=== PATIENT | male | born 1960 | race Hispanic/Latino ===

== ENCOUNTER 2018-06-17 14:12 | Inpatient (IN) | payer MEDICARE, OTHER ==
--- NOTE | 2018-06-17 15:25 | C.PDOC ---
History Of Present Illness 57 year old male with Hx of COPD presents to the ER as a prescreen for detox. Patient states he has been using ETOH and percocet, last use was last night. Denies physical complaints at this time. Time Seen by Provider: 06/17/18 15:14 Chief Complaint (Nursing): Substance Abuse History Per: Patient History/Exam Limitations: no limitations Onset/Duration Of Symptoms: Days Current Symptoms Are (Timing): Still Present Suicide/Self Injury Attempted (Context): None Associated Symptoms: denies: Suicidal Thoughts, Suicidal Plan Involuntary Hold By: None Recent travel outside of the [place]: No Past Medical History Reviewed: Historical Data, Nursing Documentation, Vital Signs Vital Signs: Last Vital Signs Temp 97.7 F 06/17/18 14:37 Pulse 86 06/17/18 14:37 Resp 18 06/17/18 14:37 BP 150/75 06/17/18 14:37 Pulse Ox 98 06/17/18 17:57 - Medical History PMH: Arthritis, Asthma, Back Problems, Bronchitis, COPD, Depression Denies: Diabetes, Hepatitis, HIV, HTN, Chronic Kidney Disease, Seizures, Sexually Transmitted Disease - [facility] DETOXIFICATION SERVICES FOR SUBSTANCE ABUSE TREATMENT (09/03/16) INDIVIDUAL PSYCHOTHERAPY, SUPPORTIVE (08/05/16) Family History: States: Unknown Family Hx, Hypertension - Social History Hx Tobacco Use: Yes Hx Alcohol Use: Yes Hx Substance Use: Yes - Immunization History Hx Tetanus Toxoid Vaccination: No Hx Influenza Vaccination: No Hx Pneumococcal Vaccination: No Review Of Systems Constitutional: Negative for: Fever, Chills Cardiovascular: Negative for: Chest Pain, Palpitations Respiratory: Negative for: Cough, Shortness of Breath Gastrointestinal: Negative for: Nausea, Vomiting Neurological: Negative for: Weakness, Numbness Physical Exam - Physical Exam Appears: Non-toxic Skin: Normal Color, Warm, Dry Head: Atraumatic, Normacephalic Eye(s): bilateral: Normal Inspection Oral Mucosa: Moist Neck: Normal, Supple Chest: Symmetrical, No Tenderness Cardiovascular: Rhythm Regular Respiratory: Normal Breath Sounds, No Rales, No Rhonchi, No Wheezing Gastrointestinal/Abdominal: Soft, No Tenderness Neurological/Psych: Oriented x3, Normal Speech ED Course And Treatment - Laboratory Results Result Diagrams: 06/17/18 15:47 06/17/18 15:47 Lab Interpretation: Normal O2 Sat by Pulse Oximetry: 98 (Room air) Pulse Ox Interpretation: Normal Progress Note: Blood work and urinalysis ordered. 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 - Scribe Statement The provider has reviewed the documentation as recorded by the Scribe Darnell Campbell All medical record entries made by the Scribe were at my direction and personally dictated by me. I have reviewed the chart and agree that the record accurately reflects my personal performance of the history, physical exam, medical decision making, and the department course for this patient. I have also personally directed, reviewed, and agree with the discharge instructions and disposition. Decision To Admit - Pt Status Changed To: Hospital Disposition Of: Inpatient - Admit Certification Admit to Inpatient:: After my assessment, the patient will require hospitalization for at least two midnights. This is because of the severity of symptoms shown, intensity of services needed, and/or the medical risk in this patient being treated as an outpatient. - InPatient: Physician Admission Certification: I certify that this patient requires 2 or more midnights of care for the following reason:: alcohol abuse. Opioid abuse. Anxiety - . Bed Request Type: Detox Admitting Physician: Filiberto Luna Patient Diagnosis: Drug abuse, Alcohol abuse, Anxiety
[2018-06-17 15:53] LABS: BASO % 0.3 % (0.0-2.0); EOS # 0.3 K/uL (0.0-0.7); EOS % 2.8 % (0.0-4.0); HEMOGLOBIN 15.4 g/dL (12.0-18.0); LYMPH # 3.4 K/uL (1.0-4.3); LYMPH % 35.2 % (20.0-40.0); MEAN CELL VOLUME 92.8 fL (80.0-94.0); MEAN CORPUSCULAR HEMOGLOBIN 31.8 pg (27.0-31.0); MEAN CORPUSCULAR HGB CONC 34.2 g/dL (33.0-37.0); MEAN PLATELET VOLUME 7.9 fL (7.2-11.7); MONO # 0.9 K/uL (0.0-0.8); MONO % 9.7 % (0.0-10.0); NEUT # 5.1 K/uL (1.8-7.0); NRBC % 0.1 % (0.0-2.0); RBC 4.83 Mil/uL (4.40-5.90); RED CELL DISTRIBUTION WIDTH 14.2 % (11.5-14.5); WHITE BLOOD COUNT 9.7 K/uL (4.8-10.8)
[2018-06-17 16:06] LABS: ALB/GLOB RATIO 2.1 (1.0-2.1); ALBUMIN 4.1 g/dL (3.5-5.0); ALT/SGPT 39 U/L (21-72); AST/SGOT 16 U/L (17-59); BLOOD UREA NITROGEN 27 mg/dL (9-20); CALCIUM 8.7 mg/dl (8.6-10.4); GFR NON-AFRICAN AMERICAN > 60
[2018-06-17 16:07] LABS: GRANULAR CAST 5 /lpf (0-1); SQUAMOUS EPITHIAL 3 /hpf (0-5); URINE BILIRUBIN NEGATIVE (NEGATIVE); URINE BLOOD NEGATIVE (NEGATIVE); URINE CLARITY Hazy (Clear); URINE COLOR Yellow (YELLOW); URINE GLUCOSE (UA) NORMAL (Normal); URINE LEUKOCYTE ESTERASE NEG Leu/uL (Negative); URINE PROTEIN NEGATIVE (NEGATIVE)
[2018-06-17 16:12] LABS: BARBITURATES, UR NEGATIVE (NEGATIVE); PHENCYCLIDINE, UR NEGATIVE (NEGATIVE)
[2018-06-17 16:22] LABS: BENZODIAZEPINES, UR POSITIVE (NEGATIVE); OPIATES, UR POSITIVE (NEGATIVE)
--- NOTE | 2018-06-17 18:25 | PCM.BM ---
<JanineTawanna - Last Filed: 06/17/18 18:23> Treatment Plan Problems - Problems identified on initial assessmt Potential for alcohol withdrawal Date Initiated: 06/17/18 Time Initiated: 18:24 Assessment reference: NA Status: Active Potential for opiate withdrawal Date Initiated: 06/17/18 Time Initiated: 18:24 Assessment reference: NA Status: Active Treatment assets and liabiliti Patient Assests: ADL independent, negotiates basic needs, cognitively intact Patient Liabilities: substance abuse - Milieu Protocol Maintain good personal hygiene: daily Encourage regular showers, daily Remind patient to perform daily oral care, daily Assist patient to perform ADL's Conduct patient checks and document Observation sheet: Q15 minutes Maintain personal safety: every shift Educate patient to report safety concerns to staff, every shift Monitor environment for contraband/sharps Medication safety: Monitor for expected outcome, potential side effects: every shift, Assess barriers to learning: every shift, Assess readiness for medication education: every shift <Cornelia Stroud - Last Filed: 06/19/18 13:59> - Diagnosis (1) Opioid use disorder, severe, dependence Status: Acute Interventions: 06/18/18 13:59 * Assess 7x/week regarding severity of withdrawal * Educate regarding risks, benefits, side effects and alternatives of medications * Use Motivational Interviewing for abstinence * Use CBT for relapse prevention * Medication management for withdrawal symptoms * Encourage medication assisted treatment * (2) Alcohol use disorder, severe, dependence Status: Acute Interventions: 06/18/18 13:59 * Assess 7x/week regarding severity of withdrawal * Educate regarding risks, benefits, side effects and alternatives of medications * Use Motivational Interviewing for abstinence * Use CBT for relapse prevention * Medication management for withdrawal symptoms * Encourage medication assisted treatment *
[2018-06-17] MEDS: Albuterol HFA 90 mcg/actuation (8 g) INH PRN (19:11)
[2018-06-17] MEDS ORDERED: Aluminum Hydroxide/Magnesium Hydroxide Susp (30 mL) PO PRN (22:40)
[2018-06-18] MEDS: Albuterol HFA 90 mcg/actuation (8 g) INH PRN ×3 (07:52→21:40)
[2018-06-18] MEDS ORDERED: Buprenorphine Hydrochloride 2 mg SL ONE ×2 (08:45→10:00)
[2018-06-18] MEDS: Multiple Vitamins Tab PO SCH (09:23)
--- NOTE | 2018-06-19 00:57 | PCM.PSYCH ---
Initial Psychiatric Evaluation - Initial Psychiatric Evaluation Type of Admission: Voluntary Legal Status: Capacity Chief Complaint (in patient's own words): "I need to stop this" History of Present Illness and Precipitating Events: The pt is seen, chart reviewed, case discussed He is a 57 y/o WM, single with no child, lives alone, on disability due to COPD He uses 15 x 10 mg pills for the last 3 years. He has been to 5-6 detoxes Drinks 10+ alcohol and sometimes 2 pints of liquor Smokes 1/2 ppd cig Denies others He had significant wdw sxs and has hx of DTs Medical; COPD, spinal stenosis Psych hx: Major depression, not inocente. Family psych hx: Denied Current Medications: Active Medications Generic Name Dose Route Start Last Admin Trade Name Freq PRN Reason Stop Dose Admin Al Hydrox/Mg Hydrox/Simethicone 30 ml 06/17/18 22:40 Maalox 30 Ml PO TID PRN Indigestion / Heartburn Albuterol 1 puff 06/17/18 18:41 06/18/18 21:40 Ventolin Hfa 90 Mcg/Actuation (8 G) INH 1 inhaler RQ6 PRN Administration Shortness of Breath Chlordiazepoxide 25 mg 06/18/18 00:00 06/18/18 17:20 Librium PO 06/21/18 23:59 25 mg TID RADHA Administration Taper Chlordiazepoxide 25 mg 06/17/18 18:44 06/18/18 21:08 Librium PO 25 mg Q4H PRN Administration Alcohol Withdrawal Clonidine HCl 0.1 mg 06/17/18 22:39 06/18/18 21:08 Catapres PO 0.1 mg Q4H PRN Administration Symptoms of alcohol withdrawl Folic Acid 1 mg 06/18/18 10:00 06/18/18 09:23 Folic Acid PO 1 mg DAILY RADHA Administration Gabapentin 300 mg 06/18/18 10:00 06/18/18 17:20 Neurontin PO 300 mg TID RADHA Administration Hydroxyzine HCl 25 mg 06/17/18 18:43 06/18/18 21:08 Atarax PO 25 mg Q6 PRN Administration Anxiety Ibuprofen 600 mg 06/17/18 18:45 06/18/18 14:07 Motrin Tab PO 600 mg Q8 PRN Administration Pain, moderate (4-7) Loperamide HCl 2 mg 06/17/18 22:40 Imodium PO Q8 PRN Diarrhea Multivitamins 1 tab 06/18/18 10:00 06/18/18 09:23 Hexavitamin PO 1 tab DAILY RADHA Administration Ondansetron HCl 4 mg 06/17/18 22:40 Zofran Tab PO Q8 PRN Nausea/Vomiting Thiamine HCl 100 mg 06/18/18 10:00 06/18/18 09:23 Vitamin B1 Tab PO 100 mg DAILY RADHA Administration Trazodone HCl 50 mg 06/17/18 18:44 06/18/18 21:08 Desyrel PO 50 mg HS PRN Administration Insomnia Past Psychiatric History - Past Psychiatric History Previous Treatment History: Intensive Outpatient Pertinent Medical Hx (Current Medical&Sleep Prob, Allergies): Allergies Allergy/AdvReac Type Severity Reaction Status Date / Time No Known Allergies Allergy Verified 01/22/18 21:46 oxyCODONE/Acetaminophen [Percocet 5/325 mg Tab] 1 ea PO Q6 #20 tab 08/08/17 Albuterol HFA [Ventolin HFA 90 mcg/actuation (8 g)] 1 - 2 puff IH Q4H PRN #1 bottle 12/31/17 Fluticasone/Vilanterol [Breo Ellipta 100-25 Mcg INH] 1 each IH DAILY 06/17/18 Umeclidinium [place] [Incruse Ellipta] 62.5 mcg IH DAILY 06/17/18 Review of Systems - Neurological Neurological: Tremor - Psychiatric Psychiatric: Abnormal Sleep Pattern, Anxiety, Depression, Difficulty Concentrating. absent: Hallucinations, Homicidal Ideation, Paranoia, Suicidal Ideation Mental Status Examination - Personal Presentation Personal Presentation: Looks stated age - Affect Affect: Constricted - Motor Activity Motor Activity: Calm - Reliability in Providing Information Reliability in Providing Information: Good - Speech Speech: Organized - Mood Mood: Depressed, Anxious - Formal Thought Process Formal Thought Process: No Impairment - Cognitive Functions Orientation: Person, Place, Situation, Time Sensorium: Alert Attention/Concentration: Attentive Estimate of Intelligence: Average Judgement: Intact, as evidence by: Insight regarding need for hospitalization Memory: Recent intact, as evidence by: Ability to recall events of the day, Remote intact, as evidenced by: Abilit to recall sig. life events - Risk Risk: Seizure, Withdrawal, Diminished functioning - Strength & Assets Inventory Strength & Assets Inventory: Cooperative DSM 5 DX - DSM 5 DSM 5 Diagnosis: Opioid withdrawal Alcohol withdrawal Opioid use d/o -severe Alcohol use d/o - severe Tobacco use d/o - severe Major depression, single moderate - Recommended/Plan of Treatment Treatment Recommendations and Plan of Treatment: Subutex and alcohol detox As needed medications Gabapentin for augmentation if needed All risks, benefits and alternatives of medications, including no medications, discussed and the patient understood and agreed. Attend groups and activities Supportive therapy and psychoeducation [place] for abstinence CBT for relapse prevention Encourage MAT Refer to rehab or IOP Attend self-help groups as well [place] for smoking cessation and patch if needed 34 min Projected ELOS: 4 days
[2018-06-19] MEDS: Albuterol HFA 90 mcg/actuation (8 g) INH PRN ×2 (07:39→13:20)
[2018-06-19] MEDS: Buprenorphine Hydrochloride 2 mg SL SCH (09:20)
[2018-06-19] MEDS: Multiple Vitamins Tab PO SCH (09:20)
--- NOTE | 2018-06-19 14:01 | PCM.PYCHPN ---
Psychiatric Progress Note - Psychiatric Progress Note Patient seen today, length of contact: 16 min Patient Chief Complaint: "I need more librium" Problems Identified/Issues Discussed: The pt is seen, chart reviewed, case discussed with staff. The pt is compliant with medications and reports no side-effects. Symptoms are improving but needs more time to stabilize. Librium is increased to 50 mg per dose due to ongoing wdw sxs Pt attends groups and activities. Support given, psycho-education provided. After care discussed. Medication Change: Yes (detox changes daily) Medical Record Reviewed: Yes Mental Status Examination - Cognitive Function Orientation: Person, Place, Situation, Time Memory: Intact Attention: WNL Concentration: Poor Association: WNL Fund of Knowledge: WNL - Mood Mood: Depressed, Anxious - Affect Affect: Constricted - Speech Speech: Appropriate - Formal Thought Process Formal Thought Process: No Impairment - Suicidal Ideation Suicidal Ideation: No - Homicidal Ideation Homicidal Ideation: No Goal/Treatment Plan - Goal/Treatment Plan Need for Continued Stay: Discharge may exacerbated symptoms, Severe functional impairment Progress Toward Problem(s) and Goals/Treatment Plan: Subutex and alcohol detox As needed medications Gabapentin for augmentation if needed All risks, benefits and alternatives of medications, including no medications, discussed and the patient understood and agreed. Attend groups and activities Supportive therapy and psychoeducation [place] for abstinence CBT for relapse prevention Encourage MAT Refer to rehab or IOP Attend self-help groups as well [place] for smoking cessation and patch if needed Estimated Date of D/C: 06/22/18
[2018-06-20] MEDS: Albuterol HFA 90 mcg/actuation (8 g) INH PRN ×3 (07:45→21:46)
[2018-06-20] MEDS: Buprenorphine Hydrochloride 2 mg SL SCH (09:17)
[2018-06-20] MEDS: Multiple Vitamins Tab PO SCH (09:17)
--- NOTE | 2018-06-20 11:17 | PCM.PYCHPN ---
Psychiatric Progress Note - Psychiatric Progress Note Patient seen today, length of contact: 16 min Patient Chief Complaint: "I am anxious" Problems Identified/Issues Discussed: The pt is seen, chart reviewed, case discussed with staff. Support and psychoeducation given, CBT and [place] used briefly No new symptoms reported, improving slowly and needs more time Increased dose helped he says No SEs from medications, risks discussed. After care discussed Medication Change: Yes (detox changes daily) Medical Record Reviewed: Yes Mental Status Examination - Cognitive Function Orientation: Person, Place, Situation, Time Memory: Intact Attention: WNL Concentration: Poor Association: WNL Fund of Knowledge: WNL - Mood Mood: Depressed, Anxious - Affect Affect: Constricted - Speech Speech: Appropriate - Formal Thought Process Formal Thought Process: No Impairment - Suicidal Ideation Suicidal Ideation: No - Homicidal Ideation Homicidal Ideation: No Goal/Treatment Plan - Goal/Treatment Plan Need for Continued Stay: Discharge may exacerbated symptoms, Severe functional impairment Progress Toward Problem(s) and Goals/Treatment Plan: Subutex and alcohol detox As needed medications Gabapentin for augmentation if needed All risks, benefits and alternatives of medications, including no medications, discussed and the patient understood and agreed. Attend groups and activities Supportive therapy and psychoeducation [place] for abstinence CBT for relapse prevention Encourage MAT Refer to rehab or IOP Attend self-help groups as well [place] for smoking cessation and patch if needed Estimated Date of D/C: 06/22/18
[2018-06-21] MEDS: Buprenorphine Hydrochloride 2 mg SL SCH (09:00)
[2018-06-21] MEDS: Multiple Vitamins Tab PO SCH (09:00)
[2018-06-21] MEDS: Albuterol HFA 90 mcg/actuation (8 g) INH PRN (09:10)
--- NOTE | 2018-06-21 12:07 | PCM.PYCHPN ---
Psychiatric Progress Note - Psychiatric Progress Note Patient seen today, length of contact: 16 min Patient Chief Complaint: "I don't know why I am not improving" Problems Identified/Issues Discussed: The pt is seen, chart reviewed, case discussed with staff. Support and psychoeducation given, CBT and [place] used briefly Improving slowly and needs more time, as he is still visibly shaky and anxious, meds adjusted No SEs from medications, risks discussed. After care discussed Medication Change: Yes (detox changes daily) Medical Record Reviewed: Yes Mental Status Examination - Cognitive Function Orientation: Person, Place, Situation, Time Memory: Intact Attention: WNL Concentration: Poor Association: WNL Fund of Knowledge: WNL - Mood Mood: Depressed, Anxious - Affect Affect: Constricted - Speech Speech: Appropriate - Formal Thought Process Formal Thought Process: No Impairment - Suicidal Ideation Suicidal Ideation: No - Homicidal Ideation Homicidal Ideation: No Goal/Treatment Plan - Goal/Treatment Plan Need for Continued Stay: Discharge may exacerbated symptoms, Severe functional impairment Progress Toward Problem(s) and Goals/Treatment Plan: Subutex and alcohol detox As needed medications Gabapentin for augmentation if needed All risks, benefits and alternatives of medications, including no medications, discussed and the patient understood and agreed. Attend groups and activities Supportive therapy and psychoeducation [place] for abstinence CBT for relapse prevention Encourage MAT Refer to rehab or IOP Attend self-help groups as well [place] for smoking cessation and patch if needed Estimated Date of D/C: 06/22/18
[2018-06-22] MEDS: Buprenorphine Hydrochloride 2 mg SL SCH (09:07)
[2018-06-22] MEDS: Multiple Vitamins Tab PO SCH (09:07)
[2018-06-22] MEDS: Albuterol HFA 90 mcg/actuation (8 g) INH PRN ×3 (09:10→23:15)
--- NOTE | 2018-06-22 13:00 | PCM.PYCHPN ---
Psychiatric Progress Note - Psychiatric Progress Note Patient seen today, length of contact: 17 min Patient Chief Complaint: "I am not ready. I will relapse, I know." Problems Identified/Issues Discussed: The pt is seen, chart reviewed, case discussed with staff. He is still tachy and anxious, despite increased doses of meds (gabapentin and librium) and he is shaky Flexeril was added but will minimal effect (he said it helped in the past)He was supposed to go to [facility] today but he said he might relapse so it is postponed to tomorrow Librium is adjusted Inderal for tachycardia and anxiety added Support and [place] used Medication Change: Yes (detox changes daily, ADD Inderal) Medical Record Reviewed: Yes Mental Status Examination - Cognitive Function Orientation: Person, Place, Situation, Time Memory: Intact Attention: Poor Concentration: Poor Association: WNL Fund of Knowledge: WNL - Mood Mood: Depressed, Anxious - Affect Affect: Constricted - Speech Speech: Appropriate - Formal Thought Process Formal Thought Process: No Impairment - Suicidal Ideation Suicidal Ideation: No - Homicidal Ideation Homicidal Ideation: No Goal/Treatment Plan - Goal/Treatment Plan Need for Continued Stay: Discharge may exacerbated symptoms, Severe functional impairment Progress Toward Problem(s) and Goals/Treatment Plan: Subutex and alcohol detox As needed medications Gabapentin for augmentation increased Flexeril and inderal added All risks, benefits and alternatives of medications, including no medications, discussed and the patient understood and agreed. Attend groups and activities Supportive therapy and psychoeducation [place] for abstinence CBT for relapse prevention Encourage MAT Refer to rehab or IOP Attend self-help groups as well [place] for smoking cessation and patch if needed Estimated Date of D/C: 06/23/18 If changed, why: Risk of relapse, ongoing withdrawal
[2018-06-22] MEDS: Albuterol-Ipratrop 3 mg / 0.5 (3 ml) UD INH PRN (17:45)
[2018-06-23] MEDS: Albuterol-Ipratrop 3 mg / 0.5 (3 ml) UD INH PRN (00:07)
[2018-06-23] MEDS ORDERED: Albuterol HFA 90 mcg/actuation (8 g) INH STA (04:48)
[2018-06-23] MEDS: Albuterol HFA 90 mcg/actuation (8 g) INH PRN ×2 (04:52→04:55)
--- NOTE | 2018-06-23 08:35 | PCM.PYCHDC ---
Mental Status Examination - Mental Status Examination Orientation: Person Discharge Summary - Discharge Note Consultations:: List each consultation separately and include: 1. Reason for request. 2. Findings. 3. Follow-up Summary of Hospital Course include:: 1. Description of specific treatment plan utilized for patients during their course of treatmen. 2. Summarize the time- course for resolution of acute symptoms and/or regressed behaviors. 3. Describe issues identified and worked on during hospitalization. 4. Describe medication utilized. 5. Describe medical problems identified and treated. 6. Reassessment of suicide risk Summary of Hospital Course: The pt is seen, chart reviewed, case discussed He is a 57 y/o WM, single with no child, lives alone, on disability due to COPD He uses 15 x 10 mg pills for the last 3 years. He has been to 5-6 detoxes Drinks 10+ alcohol and sometimes 2 pints of liquor Smokes 1/2 ppd cig Denies others He had significant wdw sxs and has hx of DTs Medical; COPD, spinal stenosis Psych hx: Major depression, not inocente. Family psych hx: Denied He will go to [facility] in [place]. - Diagnosis (1) Opioid use disorder, severe, dependence Current Visit: Yes Status: Acute (2) Alcohol use disorder, severe, dependence Current Visit: Yes Status: Acute - Final Diagnosis (DSM 5) Condition upon Discharge: STABLE Disposition: HOME/ ROUTINE Follow-up Treatment Plan: Subutex and alcohol detox As needed medications Gabapentin for augmentation increased Flexeril and inderal added All risks, benefits and alternatives of medications, including no medications, discussed and the patient understood and agreed. Attend groups and activities Supportive therapy and psychoeducation [place] for abstinence CBT for relapse prevention Encourage MAT Refer to rehab or IOP Attend self-help groups as well [place] for smoking cessation and patch if needed Prescriptions/Medication Reconciliation: Albuterol HFA [Ventolin HFA 90 mcg/actuation (8 g)] 1 puff INH RQ6 PRN #1 inhaler PRN Reason: Shortness Of Breath Albuterol/Ipratropium [Duoneb 3 mg/0.5 mg (3 ml) UD] 3 ml INH RQ6 PRN #1 neb PRN Reason: Wheezing Cyclobenzaprine [Flexeril] 5 mg PO BID #60 tab Gabapentin [Neurontin] 400 mg PO TID #90 cap Propranolol [Inderal] 20 mg PO BID #60 tab traZODone [Desyrel] 50 mg PO HS PRN #30 tab PRN Reason: Insomnia
[2018-06-23 09:08] VITALS: BP 112/66; PULSE 84; RESP 20; TEMP 98.6; O2SAT 97
[2018-06-23] MEDS: Multiple Vitamins Tab PO SCH (10:00)
== END 2018-06-23 10:29 | disposition home or self-care (01) | DRG 895 ==
LOC: C.ER 14:12 → C.7D 17:55
PROC: HZ2ZZZZ Detoxification Services for Substance Abuse Treatment (ICD-10-PCS; principal; 2018-06-17)
PROC: HZ59ZZZ Individual Psychotherapy for Substance Abuse Treatment, Supportive (ICD-10-PCS; 2018-06-17)
PROC: HZ46ZZZ Group Counseling for Substance Abuse Treatment, Psychoeducation (ICD-10-PCS; 2018-06-17)
PROC: GZ3ZZZZ Medication Management (ICD-10-PCS; 2018-06-17)
PROC: HZ80ZZZ Medication Management for Substance Abuse Treatment, Nicotine Replacement (ICD-10-PCS; 2018-06-17)
DX: F11.23 Opioid dependence with withdrawal (principal); F32.1 Major depressive disorder, single episode, moderate; F10.239 Alcohol dependence with withdrawal, unspecified; F41.9 Anxiety disorder, unspecified; J44.9 Chronic obstructive pulmonary disease, unspecified; M48.00 Spinal stenosis, site unspecified; F17.210 Nicotine dependence, cigarettes, uncomplicated

== ENCOUNTER 2018-12-31 11:29 | Observation (INO) | payer MEDICARE, OTHER ==
[2018-12-31] MEDS ORDERED: Albuterol-Ipratrop 3 mg / 0.5 (3 ml) UD ONE ×3 (12:08→14:36)
[2018-12-31] MEDS ORDERED: Albuterol-Ipratrop 3 mg / 0.5 (3 ml) UD INH STA ×3 (12:08→14:12)
--- NOTE | 2018-12-31 12:26 | C.PDOC ---
History Of Present Illness This is a 58 year old male with PMHx of COPD, depression, opioid use, alcohol, and tobacco use disorder who presents to the ED with shortness of breath x 2 days. Patient reports a nonproductive cough, associated with generalized body ache. He takes albuterol and for his COPD; patient continues to smoke and use illicit drugs. Patient did receive his flu shot and denied any sick contacts. Patient has never been intubated or admitted for DTs. Patient is requesting detox, however no beds are available. Denied any associated fever, chills, headache, chest pain, or shortness of breath. Chief Complaint (Nursing): Shortness Of Breath History Per: Patient History/Exam Limitations: no limitations Onset/Duration Of Symptoms: Days Current Symptoms Are (Timing): Still Present Exacerbating Factor(s): Coughing Current Respiratory Medications: Albuterol, Atrovent Severity: Moderate Associated Symptoms: denies: Fever, Chills, Sweating, Chest Pain, Bloody Cough, Productive Cough, Heart Racing, Leg/Calf Pain, Ankle/Leg Swelling, Dizziness, Light-headedness Recent travel outside of the [place]: No Past Medical History Vital Signs: Last Vital Signs Temp 97.5 F L 12/31/18 12:05 Pulse 76 12/31/18 12:05 Resp 24 12/31/18 12:05 BP 142/115 H 12/31/18 12:05 Pulse Ox 96 12/31/18 12:05 - Medical History PMH: Arthritis, Asthma, Back Problems, Bronchitis, COPD, Depression Denies: Diabetes, Hepatitis, HIV, HTN, Chronic Kidney Disease, Seizures, Sexu ally Transmitted Disease Surgical History: No Surg Hx - [facility] Procedures DETOXIFICATION SERVICES FOR SUBSTANCE ABUSE TREATMENT (06/17/18) GROUP TELEVISION INSTALLER HELPER FOR SUBSTANCE ABUSE TREATMENT, PSYCHOEDUCATION (06/17/18) INDIV PSYCHOTHERAPY FOR SUBSTANCE ABUSE TREATMENT, SUPPORT (06/17/18) INDIVIDUAL PSYCHOTHERAPY, SUPPORTIVE (08/05/16) MEDICATION MANAGEMENT (06/17/18) MEDS MGMT FOR SUBSTANCE ABUSE TREATMENT, NICOTINE REPLACE (06/17/18) Family History: States: Unknown Family Hx, Hypertension - Social History Hx Tobacco Use: Yes Hx Alcohol Use: Yes Hx Substance Use: Yes - Immunization History Hx Tetanus Toxoid Vaccination: No Hx Influenza Vaccination: No Hx Pneumococcal Vaccination: No Review Of Systems Constitutional: Negative for: Fever, Chills, Sweats, Weakness Cardiovascular: Negative for: Chest Pain, Palpitations Respiratory: Positive for: Cough, Shortness of Breath, Wheezing. Negative for: Hemoptysis, SOB with Excertion, Pleuritic Pain, Sputum Gastrointestinal: Negative for: Nausea, Vomiting, Abdominal Pain, Diarrhea, Constipation Genitourinary: Negative for: Dysuria, Frequency Skin: Negative for: Rash Neurological: Negative for: Weakness, Numbness Physical Exam - Physical Exam Appears: Well, Non-toxic, No Acute Distress Skin: Normal Color, Warm, Dry Head: Atraumatic, Normacephalic Cardiovascular: Rhythm Regular Respiratory: Normal Breath Sounds, No Decreased Breath Sounds, No Accessory Muscle Use, No Rales, Rhonchi, Wheezing Gastrointestinal/Abdominal: Normal Exam, Bowel Sounds, Soft, No Tenderness Extremity: Normal ROM, No Tenderness, No Pedal Edema, No Calf Tenderness Pulses: Left Radial: Normal, Right Radial: Normal Neurological/Psych: Oriented x3, Normal Speech, Normal Cognition, Normal Cranial Nerves ED Course And Treatment - Laboratory Results Result Diagrams: 12/31/18 13:17 12/31/18 13:17 O2 Sat by Pulse Oximetry: 96 Medical Decision Making Medical Decision Making: COPD Exacerbation - Duonebs x3, Solumedrol - Labs ordered - Patient requested detox - no bed available - CXR ordered - Will reassess -- Labs WNL -- CXR - unremarkable for infiltrates or effusions -- Persists with wheezing noted throughout all lung bases --- Spoke to Dr. Limon who accepts the admission, obs / tele Disposition - Disposition Disposition: HOSPITALIZED Disposition Time: 16:00 Condition: STABLE - Clinical Impression Clinical Impression: COPD exacerbation
[2018-12-31] MEDS ORDERED: MethylPREDNISolone 40 mg Vial IVP STA (12:43)
[2018-12-31 13:23] LABS: BASO % 0.7 % (0.0-2.0); EOS # 0.3 K/uL (0.0-0.7); EOS % 4.4 % (0.0-4.0); HEMOGLOBIN 14.7 g/dL (12.0-18.0); LYMPH # 2.3 K/uL (1.0-4.3); LYMPH % 32.9 % (20.0-40.0); MEAN CELL VOLUME 93.1 fL (80.0-94.0); MEAN CORPUSCULAR HGB CONC 32.3 g/dL (33.0-37.0); MEAN PLATELET VOLUME 8.7 fL (7.2-11.7); MONO # 0.7 K/uL (0.0-0.8); MONO % 9.2 % (0.0-10.0); NEUT # 3.8 K/uL (1.8-7.0); NEUT % 52.8 % (50.0-75.0); NRBC % 0.1 % (0.0-2.0); RBC 4.89 Mil/uL (4.40-5.90); RED CELL DISTRIBUTION WIDTH 15.9 % (11.5-14.5); WHITE BLOOD COUNT 7.1 K/uL (4.8-10.8)
[2018-12-31 13:38] LABS: ALB/GLOB RATIO 2.8 (1.0-2.1); ALBUMIN 4.4 g/dL (3.5-5.0); ALT/SGPT 28 U/L (21-72); AST/SGOT 34 U/L (17-59); BLOOD UREA NITROGEN 13 mg/dL (9-20); CALCIUM 8.9 mg/dl (8.6-10.4); GFR NON-AFRICAN AMERICAN > 60
[2018-12-31 14:10] LABS: CK-MB 1.58 ng/mL (0.0-3.38)
[2018-12-31 15:41] LABS: SQUAMOUS EPITHIAL 1 /hpf (0-5); URINE BILIRUBIN NEGATIVE (NEGATIVE); URINE BLOOD NEGATIVE (NEGATIVE); URINE CLARITY Clear (Clear); URINE COLOR Yellow (YELLOW); URINE GLUCOSE (UA) NORMAL (Normal); URINE LEUKOCYTE ESTERASE NEG Leu/uL (Negative); URINE PROTEIN NEGATIVE (NEGATIVE); URINE UROBILINOGEN NORMAL mg/dL (0.2-1.0)
--- NOTE | 2018-12-31 15:44 | RAD ---
HISTORY: shortness of breath COMPARISON: Chest x-ray performed 08/17/16 TECHNIQUE: Chest, one view. FINDINGS: Examination limited by habitus. LUNGS: No focal consolidation. Question presence of nodular pleural thickening along the lateral left lower lobe. Please note that chest x-ray has limited sensitivity for the detection of pulmonary masses. PLEURA: Pleural thickening, left lower lobe. No significant pleural effusion identified. No definite pneumothorax . CARDIOVASCULAR: Heart size appears within normal limits. Atherosclerotic calcification of the aortic knob. OSSEOUS STRUCTURES: Partially imaged postsurgical changes of the left shoulder. VISUALIZED UPPER ABDOMEN: Unremarkable. OTHER FINDINGS: None. IMPRESSION: No focal consolidation. Question presence of nodular pleural thickening along the lateral left lower lobe.
[2018-12-31 16:07] LABS: BARBITURATES, UR NEGATIVE (NEGATIVE); OPIATES, UR NEGATIVE (NEGATIVE); PHENCYCLIDINE, UR NEGATIVE (NEGATIVE)
[2018-12-31 16:13] LABS: BENZODIAZEPINES, UR POSITIVE (NEGATIVE)
[2018-12-31] MEDS ORDERED: Oxycodone/Acetaminophen 5/325 mg Tab PO STA (16:51)
[2018-12-31] MEDS ORDERED: Oxycodone/Acetaminophen 5/325 mg Tab ONE (16:57)
[2018-12-31 17:26] VITALS: RESP 20
[2018-12-31] MEDS: Oxycodone/Acetaminophen 5/325 mg Tab PO SCH (18:23)
[2018-12-31] MEDS: Albuterol-Ipratrop 3 mg / 0.5 (3 ml) UD INH SCH (19:06)
--- NOTE | 2018-12-31 19:37 | CP.PCM.HP ---
History of Present Illness - History of Present Illness History of Present Illness: 58 years old white male present to [facility] emergency room complaining of generalized shaking shortness of breath cough mild expectoration. Patient has a history of COPD smokes half a pack per day Patient also drinks alcohol but not very clear how much he drinks every day Patient with a history of back injury and spinal stenosis and takes Percocet Patient was treated in the emergency room with not much improvement in the whe ezing and patient is admitted for wheezing and possible alcohol detox Present on Admission - Present on Admission Any Indicators Present on Admission: No Review of Systems - Review of Systems All systems: reviewed and no additional remarkable complaints except (wheezing) Past Patient History - Past Medical History & Family History Past Medical History?: Yes - Past Social History Smoking Status: Heavy Smoker > 10 Cigarettes Daily - CARDIAC Hx Hypertension: No - PULMONARY Hx Asthma: Yes Hx Bronchitis: Yes Hx Chronic Obstructive Pulmonary Disease (COPD): Yes - NEUROLOGICAL Hx Seizures: No - HEENT Hx HEENT Problems: No - RENAL Hx Chronic Kidney Disease: No - ENDOCRINE/METABOLIC Hx Endocrine Disorders: No - HEMATOLOGICAL/ONCOLOGICAL Hx Human Immunodeficiency Virus (HIV): No - INTEGUMENTARY Hx Dermatological Problems: No - MUSCULOSKELETAL/RHEUMATOLOGICAL Hx Arthritis: Yes - GASTROINTESTINAL Hx Gastrointestinal Disorders: No - GENITOURINARY/GYNECOLOGICAL Hx Sexually Transmitted Disorders: No - PSYCHIATRIC Hx Depression: Yes Hx Substance Use: Yes - SURGICAL HISTORY Hx Surgeries: Yes Other/Comment: Right hip replacement. Left hip replacement. Left arm surgery with metal plates and screws - ANESTHESIA Hx Anesthesia: Yes Hx Anesthesia Reactions: No Meds Allergies/Adverse Reactions: Allergies Allergy/AdvReac Type Severity Reaction Status Date / Time No Known Allergies Allergy Verified 01/22/18 21:46 Physical Exam - Constitutional Appears: Well - Head Exam Head Exam: ATRAUMATIC, NORMAL INSPECTION, NORMOCEPHALIC - Eye Exam Eye Exam: EOMI, Normal appearance, PERRL - ENT Exam ENT Exam: Mucous Membranes Moist, Normal Exam - Neck Exam Neck exam: Positive for: Normal Inspection - Respiratory Exam Respiratory Exam: Rhonchi, Wheezes - Cardiovascular Exam Cardiovascular Exam: REGULAR RHYTHM - Extremities Exam Extremities exam: Positive for: normal inspection - Back Exam Back exam: NORMAL INSPECTION - Neurological Exam Neurological exam: Abnormal Gait, Alert Results - Vital Signs Recent Vital Signs: Last Vital Signs Temp 98.3 F 12/31/18 17:25 Pulse 103 H 12/31/18 17:25 Resp 20 12/31/18 17:25 BP 144/91 H 12/31/18 17:25 Pulse Ox 96 12/31/18 17:25 - Labs Result Diagrams: 12/31/18 13:17 12/31/18 13:17 Labs: Laboratory Results - last 24 hr 12/31/18 12/31/18 12/31/18 13:17 13:17 13:17 WBC 7.1 RBC 4.89 Hgb 14.7 Hct 45.5 MCV 93.1 MCH 30.0 MCHC 32.3 L RDW 15.9 H Plt Count 284 MPV 8.7 Neut % (Auto) 52.8 Lymph % (Auto) 32.9 [place] % (Auto) 9.2 Eos % (Auto) 4.4 H Baso % (Auto) 0.7 Neut # (Auto) 3.8 Lymph # (Auto) 2.3 Carl[place] # (Auto) 0.7 Eos # (Auto) 0.3 Baso # (Auto) 0.0 Sodium 137 Potassium 3.7 Chloride 104 Carbon Dioxide 31 H Anion Gap 5 L BUN 13 Creatinine 0.6 L Est GFR ( Amer) > 60 Est GFR (Non-Af Amer) > 60 Random Glucose 90 Calcium 8.9 Total Bilirubin 0.7 AST 34 ALT 28 Alkaline Phosphatase 127 H Total Creatine Kinase 31 L CK-MB (Mass) 1.58 Troponin I < 0.0120 Total Protein 6.1 L Albumin 4.4 Globulin 1.6 L Albumin/Globulin Ratio 2.8 H Urine Color Urine Clarity Urine pH Ur Specific [place] Urine Protein Urine Glucose (UA) Urine Ketones Urine Blood Urine Nitrate Urine Bilirubin Urine Urobilinogen Ur Leukocyte Esterase Urine WBC (Auto) Urine RBC (Auto) Ur Squamous Epith Cells Urine Opiates Screen Urine Methadone Screen Ur Barbiturates Screen Ur Phencyclidine Scrn Ur Amphetamines Screen U Benzodiazepines Scrn U Oth Cocaine Metabols U Cannabinoids Screen Alcohol, Quantitative < 10 Influenza Typ A,B (EIA) Negative for flu a/b 12/31/18 12/31/18 15:22 15:22 WBC RBC Hgb Hct MCV MCH MCHC RDW Plt Count MPV Neut % (Auto) Lymph % (Auto) [place] % (Auto) Eos % (Auto) Baso % (Auto) Neut # (Auto) Lymph # (Auto) [place] # (Auto) Eos # (Auto) Baso # (Auto) Sodium Potassium Chloride Carbon Dioxide Anion Gap BUN Creatinine Est GFR ( Amer) Est GFR (Non-Af Amer) Random Glucose Calcium Total Bilirubin AST ALT Alkaline Phosphatase Total Creatine Kinase CK-MB (Mass) Troponin I Total Protein Albumin Globulin Albumin/Globulin Ratio Urine Color Yellow Urine Clarity Clear Urine pH 7.0 Ur Specific [place] 1.012 Urine Protein Negative Urine Glucose (UA) Normal Urine Ketones Negative Urine Blood Negative Urine Nitrate Negative Urine Bilirubin Negative Urine Urobilinogen Normal Ur Leukocyte Esterase Neg Urine WBC (Auto) < 1 Urine RBC (Auto) < 1 Ur Squamous Epith Cells 1 Urine Opiates Screen Negative Urine Methadone Screen Negative Ur Barbiturates Screen Negative Ur Phencyclidine Scrn Negative Ur Amphetamines Screen Negative U Benzodiazepines Scrn Positive U Oth Cocaine Metabols Negative U Cannabinoids Screen Negative Alcohol, Quantitative Influenza Typ A,B (EIA) Assessment & Plan (1) COPD exacerbation Status: Acute (2) Alcohol abuse Status: Acute
[2018-12-31] MEDS: MethylPREDNISolone 40 mg Vial IV SCH (21:00)
[2018-12-31] MEDS ORDERED: MethylPREDNISolone 40 mg Vial IVP SCH (22:00)
[2019-01-01] MEDS: Albuterol-Ipratrop 3 mg / 0.5 (3 ml) UD INH SCH ×6 (01:44→20:01)
[2019-01-01] MEDS: Oxycodone/Acetaminophen 5/325 mg Tab PO SCH (02:20)
[2019-01-01] MEDS: MethylPREDNISolone 40 mg Vial IV SCH ×4 (02:21→21:00)
[2019-01-01 06:55] LABS: BASO % 0.2 % (0.0-2.0); EOS % 0.1 % (0.0-4.0); HEMOGLOBIN 14.7 g/dL (12.0-18.0); LYMPH # 0.7 K/uL (1.0-4.3); LYMPH % 8.6 % (20.0-40.0); MEAN CELL VOLUME 92.9 fL (80.0-94.0); MEAN CORPUSCULAR HEMOGLOBIN 30.3 pg (27.0-31.0); MEAN CORPUSCULAR HGB CONC 32.6 g/dL (33.0-37.0); MEAN PLATELET VOLUME 8.4 fL (7.2-11.7); MONO # 0.2 K/uL (0.0-0.8); NEUT # 7.6 K/uL (1.8-7.0); NEUT % 89.1 % (50.0-75.0); PLATELET COUNT 303 K/uL (130-400); RBC 4.86 Mil/uL (4.40-5.90); RED CELL DISTRIBUTION WIDTH 15.5 % (11.5-14.5); WHITE BLOOD COUNT 8.5 K/uL (4.8-10.8)
[2019-01-01 07:48] LABS: ALB/GLOB RATIO 1.9 (1.0-2.1); ALBUMIN 3.8 g/dL (3.5-5.0); ALT/SGPT 19 U/L (21-72); AST/SGOT 17 U/L (17-59); BLOOD UREA NITROGEN 18 mg/dL (9-20); CALCIUM 9.3 mg/dl (8.6-10.4); GFR NON-AFRICAN AMERICAN > 60
[2019-01-01] MEDS ORDERED: Oxycodone/Acetaminophen 5/325 mg Tab PO PRN ×3 (08:02→19:00)
[2019-01-01 08:28] LABS: LYMPHOCYTE 8 % (20-40); MONOCYTE 3 % (0-10); NEUTROPHIL 89 % (50-75); TOTAL CELLS COUNTED 100
[2019-01-01 08:31] LABS: PLATELET ESTIMATE NORMAL (NORMAL)
[2019-01-01] MEDS: Enoxaparin 40 mg Syringe SC SCH (09:46)
[2019-01-01] MEDS: Pantoprazole 40 mg EC Tab PO SCH (09:46)
--- NOTE | 2019-01-01 10:25 | CP.PCM.PN ---
Subjective - Date & Time of Evaluation Date of Evaluation: 01/01/19 Time of Evaluation: 10:24 - Subjective Subjective: CHIEF COMPLAINTS TODAY : LESS WHEEZING ROS. HEENT : N. Resp : No CP ,or hemoptysis Cardio : No anginal CP, PND, orthopnea, palpitation GI : No abd.pain, n/v ,diarrhea or GI bleeding . SUPERVISOR POLISHING : No headache, vertigo, focal deficit. Musculoskel : No joint swelling , Derm : No rash Psych : Normal affect. Ext : No swelling ,calf pain PE. Pt. is alert awake in no distress. V.S As noted in the chart Head ,ear nose,throat and eyes : Normal. Neck : Supple with normal carotids. Lungs:EZEQUIEL WHEEZE AND RONCHI Heart : S1 & S2 normal with S4. No murmur. Abd : Soft non tender with normal bowel sounds. Neuro : Moves all ext. with no localized deficit. Ext : No edema with intact pulses.Non tender calves Derm : No rashes or decubitus ulcer. LABS/RADIOLOGY: ASSESSMENT/PLAN : COT. STEROIDS/NEB Objective - Vital Signs/Intake and Output Vital Signs (last 24 hours): Temp Pulse Resp BP Pulse Ox 98.5 F 91 H 20 104/65 96 01/01/19 07:00 01/01/19 07:00 01/01/19 07:00 01/01/19 07:00 01/01/19 07:00 - Medications Medications: Current Medications Albuterol/Ipratropium (Duoneb 3 Mg/0.5 Mg (3 Ml) Ud) 3 ml INH RQ4 [facility] Last Admin: 01/01/19 05:21 Dose: Not Given Chlordiazepoxide (Librium) 25 mg PO Q8 PRN PRN Reason: Agitation Enoxaparin Sodium (Lovenox) 40 mg SC DAILY [facility] Last Admin: 01/01/19 09:46 Dose: Not Given Methylprednisolone (Solu-Medrol) 40 mg IV Q6H [facility] Last Admin: 01/01/19 09:46 Dose: 40 mg Oxycodone/Acetaminophen (Percocet 5/325 Mg Tab) 2 tab PO Q8H PRN PRN Reason: Pain, severe (8-10) Stop: 01/03/19 18:16 Pantoprazole Sodium (Protonix Ec Tab) 40 mg PO DAILY [facility] Last Admin: 01/01/19 09:46 Dose: 40 mg - Labs Labs: 01/01/19 06:48 01/01/19 06:48 Assessment and Plan (1) COPD exacerbation Status: Acute (2) Alcohol abuse Status: Acute
--- NOTE | 2019-01-01 11:03 | PCM.PSYCH ---
Initial Psychiatric Evaluation - Initial Psychiatric Evaluation Type of Admission: Voluntary Legal Status: Capacity Chief Complaint (in patient's own words): "I am in pain" History of Present Illness and Precipitating Events: This is a 58 year old male who is single with no children, lives alone, and on disability due to COPD. He presented to the hospital for shortness of breath. Psych was consulted for alcohol and opioid withdrawal symptoms. Patient admits to using 4-5 10mg Percocet per day for the last 3 years. He states he is in chronic pain from a plate in his left arm and spinal stenosis, which cause significant pain. He reports being to detox 5-6 times. He did not attend [facility] after his last detox because patient states he cannot work. Patient admits to drinking 2 pints of liquor. Patient reports smoking pack per day. Patient denies heroin, cocaine, marijuana, benzodiazepine, and methamphetamine use. He is having withdrawal symptoms of tremors. Patient has history of DTs. Patient appeared very anxious. Patient denies suicidal or homicidal ideations, auditory or visual hallucinations, paranoia, or trauma. With regards to pain killers, he admits to getting them from ERs, friends and from the street. He did go to a pain specialist but the njections did not work and his PCP did not rx any opioids. He claims to have a legit rx from a recent ED visit for 10 mg He is contemplating going on suboxone for pain mgt. Psych Hx: major depression, not suicidal Fam Psych: denies PMHx: COPD, spinal stenosis Meds: trazodone, propranolol, gabapentin, cyclobenzaprine, albuterol/ipratropium Allergies: denies SurgHx: right hip replacement, left hip replacement, left arm surgery with plate and screws Current Medications: Active Medications Generic Name Dose Route Start Last Admin Trade Name Freq PRN Reason Stop Dose Admin Albuterol/Ipratropium 3 ml 12/31/18 18:15 01/01/19 05:21 Duoneb 3 Mg/0.5 Mg (3 Ml) Ud INH Not Given RQ4 [facility] Chlordiazepoxide 25 mg 12/31/18 18:10 Librium PO Q8 PRN Agitation Chlordiazepoxide 0 mg 01/01/19 12:00 Librium PO 01/05/19 11:59 Q6 [facility] Taper Clonidine HCl 0.1 mg 01/01/19 10:47 Catapres PO Q4H PRN Symptoms of alcohol withdrawl Enoxaparin Sodium 40 mg 01/01/19 10:00 01/01/19 09:46 Lovenox SC Not Given DAILY [facility] Folic Acid 1 mg 01/01/19 11:00 Folic Acid PO DAILY [facility] Gabapentin 400 mg 01/01/19 14:00 Neurontin PO TID [facility] Methylprednisolone 40 mg 12/31/18 20:00 01/01/19 09:46 Solu-Medrol IV 40 mg Q6H [facility] Administration Mirtazapine 30 mg 01/01/19 22:00 Remeron PO HS [facility] Multivitamins 1 tab 01/01/19 11:00 Hexavitamin PO DAILY [facility] Oxycodone/Acetaminophen 2 tab 01/01/19 10:22 01/01/19 10:38 Percocet 5/325 Mg Tab PO 01/03/19 18:16 2 tab Q8H PRN Administration Pain, severe (8-10) Pantoprazole Sodium 40 mg 01/01/19 10:00 01/01/19 09:46 Protonix Ec Tab PO 40 mg DAILY [facility] Administration Thiamine HCl 100 mg 01/01/19 11:00 Vitamin B1 Tab PO DAILY [facility] Past Psychiatric History - Past Psychiatric History Previous Treatment History: None Pertinent Medical Hx (Current Medical&Sleep Prob, Allergies): Allergies Allergy/AdvReac Type Severity Reaction Status Date / Time No Known Allergies Allergy Verified 01/22/18 21:46 Albuterol HFA [Ventolin HFA 90 mcg/actuation (8 g)] 1 - 2 puff IH Q4H PRN #1 bottle 12/31/17 Fluticasone/Vilanterol [Breo Ellipta 100-25 Mcg INH] 1 each IH DAILY 06/17/18 Umeclidinium [place] [Incruse Ellipta] 62.5 mcg IH DAILY 06/17/18 Albuterol HFA [Ventolin HFA 90 mcg/actuation (8 g)] 1 puff INH RQ6 PRN #1 inhaler 06/23/18 Albuterol/Ipratropium [Duoneb 3 mg/0.5 mg (3 ml) UD] 3 ml INH RQ6 PRN #1 neb 06/23/18 Cyclobenzaprine [Flexeril] 5 mg PO BID #60 tab 06/23/18 Gabapentin [Neurontin] 400 mg PO TID #90 cap 06/23/18 Propranolol [Inderal] 20 mg PO BID #60 tab 06/23/18 traZODone [Desyrel] 50 mg PO HS PRN #30 tab 06/23/18 Cymbalta 1 tab PO BID 12/31/18 Oxycodone HCl/Acetaminophen [Percocet 10-325 mg Tablet] 1 each PO Q6 12/31/18 Review of Systems - Psychiatric Psychiatric: Abnormal Sleep Pattern, Anhedonia, Anxiety, Depression, Difficulty Concentrating, Irritability. absent: Hallucinations, Homicidal Ideation, Paranoia, Suicidal Ideation Mental Status Examination - Personal Presentation Personal Presentation: Looks stated age - Affect Affect: Constricted - Motor Activity Motor Activity: Calm - Reliability in Providing Information Reliability in Providing Information: Good - Speech Speech: Organized - Mood Mood: Depressed, Anxious, Other (irate) - Formal Thought Process Formal Thought Process: No Impairment - Cognitive Functions Orientation: Person, Place, Situation, Time Sensorium: Alert Attention/Concentration: Easily distracted Estimate of Intelligence: Average Judgement: Intact, as evidence by: Insight regarding need for hospitalization Memory: Recent intact, as evidence by: Ability to recall events of the day, Remote intact, as evidenced by: Abilit to recall sig. life events - Risk Risk: Withdrawal, Diminished functioning - Strength & Assets Inventory Strength & Assets Inventory: Cooperative - Limitations Limitations: Other DSM 5 DX - DSM 5 DSM 5 Diagnosis: Opioid withdrawal Alcohol withdrawal Opioid use disorder, severe Alcohol use disorder, severe Tobacco use disorder, severe Depressive d/o - unspecified - Recommended/Plan of Treatment Treatment Recommendations and Plan of Treatment: Librium taper remeron for sleep As needed medications Gabapentin for augmentation Start Folic Acid, Thiamine, and MVs Supportive therapy and psychoeducation [place] for abstinence Encourage MAT Refer to rehab or IOP Attend self-help groups as well Smoking cessation with [place] Nicotine patch 39 minutes
[2019-01-01] MEDS: Multiple Vitamins Tab PO SCH (11:42)
[2019-01-01] MEDS: Oxycodone/Acetaminophen 5/325 mg Tab PO PRN (18:36)
[2019-01-02] MEDS: Albuterol-Ipratrop 3 mg / 0.5 (3 ml) UD INH SCH ×3 (00:14→11:04)
[2019-01-02] MEDS: Oxycodone/Acetaminophen 5/325 mg Tab PO PRN ×3 (00:19→12:30)
[2019-01-02] MEDS: MethylPREDNISolone 40 mg Vial IV SCH ×2 (01:36→09:00)
[2019-01-02 08:01] VITALS: O2SAT 97
--- NOTE | 2019-01-02 08:13 | CARD ---
APPROVED REPORT Date of service: 12/31/2018 EKG Measurement Heart [id number] <Conclusion> Normal sinus rhythm Possible Left atrial enlargement Cannot rule out Anterior infarct, age undetermined Abnormal ECG
[2019-01-02 09:07] VITALS: BP 120/75; PULSE 84; TEMP 97.2
[2019-01-02] MEDS: Multiple Vitamins Tab PO SCH (09:47)
[2019-01-02] MEDS: Pantoprazole 40 mg EC Tab PO SCH (09:47)
[2019-01-02] MEDS: Enoxaparin 40 mg Syringe SC SCH (09:53)
--- NOTE | 2019-01-02 11:52 | CP.PCM.PN ---
Subjective - Date & Time of Evaluation Date of Evaluation: 01/02/19 Time of Evaluation: 11:52 - Subjective Subjective: PATIENT SEEN AND EXAMINED AT THE BEDSIDE Objective - Vital Signs/Intake and Output Vital Signs (last 24 hours): Temp Pulse Resp BP Pulse Ox 97.2 F L 84 20 120/75 97 01/02/19 07:00 01/02/19 07:00 01/02/19 07:00 01/02/19 07:00 01/02/19 08:00 - Medications Medications: Current Medications Albuterol/Ipratropium (Duoneb 3 Mg/0.5 Mg (3 Ml) Ud) 3 ml INH RQ4 [facility] Last Admin: 01/02/19 11:04 Dose: Not Given Chlordiazepoxide (Librium) 25 mg PO Q8 PRN PRN Reason: Agitation Chlordiazepoxide (Librium) 25 mg PO Q6 [facility]; Taper Stop: 01/05/19 11:59 Last Admin: 01/02/19 05:27 Dose: 25 mg Clonidine HCl (Catapres) 0.1 mg PO Q4H PRN PRN Reason: Symptoms of alcohol withdrawl Enoxaparin Sodium (Lovenox) 40 mg SC DAILY [facility] Last Admin: 01/02/19 09:53 Dose: Not Given Folic Acid (Folic Acid) 1 mg PO DAILY [facility] Last Admin: 01/02/19 09:46 Dose: 1 mg Gabapentin (Neurontin) 400 mg PO TID [facility] Last Admin: 01/02/19 09:46 Dose: 400 mg Methylprednisolone (Solu-Medrol) 40 mg IV Q6H [facility] Last Admin: 01/02/19 09:00 Dose: 40 mg Mirtazapine (Remeron) 30 mg PO HS [facility] Last Admin: 01/01/19 21:00 Dose: 30 mg Multivitamins (Hexavitamin) 1 tab PO DAILY [facility] Last Admin: 01/02/19 09:47 Dose: 1 tab Oxycodone/Acetaminophen (Percocet 5/325 Mg Tab) 2 tab PO Q6H PRN PRN Reason: Pain, severe (8-10) Stop: 01/04/19 18:31 Last Admin: 01/02/19 06:27 Dose: 2 tab Pantoprazole Sodium (Protonix Ec Tab) 40 mg PO DAILY [facility] Last Admin: 03/09/19 09:47 Dose: 40 mg Thiamine HCl (Vitamin B1 Tab) 100 mg PO DAILY [facility] Last Admin: 01/02/19 09:46 Dose: 100 mg - Labs Labs: 01/01/19 06:48 01/01/19 06:48 Assessment and Plan - Assessment and Plan (Free Text) Assessment: FOLLOW UP WITH DR AKERS IN HIS OFFICE CONTINUE HOME MEDICATION NEW PRESCRIPTION GIVEN MEDROL DOSE PACK FOLIC ACID ONE TAB DAILY MULTI VIT ONE TAB DAILY VENTOLIN IHN REMERON 30 MG PO DAILY TRAMADOL FOR 3 DAYS ACTIVITY TOLERATED CALL DR AKERS OR GO TO THE EMERGENCY ROOM IF SYMPTOM RETURN OR WORSENING
--- NOTE | 2019-01-02 12:55 | CP.PCM.PN ---
Objective - Vital Signs/Intake and Output Vital Signs (last 24 hours): Temp Pulse Resp BP Pulse Ox 97.2 F L 84 20 120/75 97 01/02/19 07:00 01/02/19 07:00 01/02/19 07:00 01/02/19 07:00 01/02/19 08:00 - Medications Medications: Current Medications Albuterol/Ipratropium (Duoneb 3 Mg/0.5 Mg (3 Ml) Ud) 3 ml INH RQ4 [facility] Last Admin: 01/02/19 11:04 Dose: Not Given Chlordiazepoxide (Librium) 25 mg PO Q8 PRN PRN Reason: Agitation Chlordiazepoxide (Librium) 25 mg PO TID [facility]; Taper Stop: 01/05/19 11:59 Last Admin: 01/02/19 05:27 Dose: 25 mg Clonidine HCl (Catapres) 0.1 mg PO Q4H PRN PRN Reason: Symptoms of alcohol withdrawl Enoxaparin Sodium (Lovenox) 40 mg SC DAILY [facility] Last Admin: 01/02/19 09:53 Dose: Not Given Folic Acid (Folic Acid) 1 mg PO DAILY [facility] Last Admin: 01/02/19 09:46 Dose: 1 mg Gabapentin (Neurontin) 400 mg PO TID [facility] Last Admin: 01/02/19 09:46 Dose: 400 mg Methylprednisolone (Solu-Medrol) 40 mg IV Q6H [facility] Last Admin: 01/02/19 09:00 Dose: 40 mg Mirtazapine (Remeron) 30 mg PO HS [facility] Last Admin: 01/01/19 21:00 Dose: 30 mg Multivitamins (Hexavitamin) 1 tab PO DAILY [facility] Last Admin: 01/02/19 09:47 Dose: 1 tab Oxycodone/Acetaminophen (Percocet 5/325 Mg Tab) 2 tab PO Q6H PRN PRN Reason: Pain, severe (8-10) Stop: 01/04/19 18:31 Last Admin: 01/02/19 12:30 Dose: 2 tab Pantoprazole Sodium (Protonix Ec Tab) 40 mg PO DAILY [facility] Last Admin: 01/02/19 09:47 Dose: 40 mg Thiamine HCl (Vitamin B1 Tab) 100 mg PO DAILY [facility] Last Admin: 01/02/19 09:46 Dose: 100 mg - Labs Labs: 01/01/19 06:48 01/01/19 06:48 Assessment and Plan (1) COPD exacerbation Status: Acute (2) Alcohol abuse Status: Acute
--- NOTE | 2019-01-03 13:25 | CP.PCM.DIS ---
Provider - Provider Date of Admission: 12/31/18 15:58 Attending physician: Malcolm Limon MD Consults: 01/01/19 08:01 Psychiatry Consult Routine Comment: Consulting Provider: Cornelia Stroud Consulting Physician: Cornelia Stroud Reason for Consult: opiod and benzo abuse Time Spent in preparation of Discharge (in minutes): 35 Diagnosis - Discharge Diagnosis (1) COPD exacerbation Status: Acute (2) Alcohol abuse Status: Acute Hospital Course - Lab Results Lab Results: Most Recent Lab Values WBC 8.5 K/uL (4.8-10.8) 01/01/19 06:48 RBC 4.86 Mil/uL (4.40-5.90) 01/01/19 06:48 Hgb 14.7 g/dL (12.0-18.0) 01/01/19 06:48 Hct 45.2 % (35.0-51.0) 01/01/19 06:48 MCV 92.9 fL (80.0-94.0) 01/01/19 06:48 MCH 30.3 pg (27.0-31.0) 01/01/19 06:48 MCHC 32.6 g/dL (33.0-37.0) L 01/01/19 06:48 RDW 15.5 % (11.5-14.5) H 01/01/19 06:48 Plt Count 303 K/uL (130-400) 01/01/19 06:48 MPV 8.4 fL (7.2-11.7) 01/01/19 06:48 Neut % (Auto) 89.1 % (50.0-75.0) H 01/01/19 06:48 Lymph % (Auto) 8.6 % (20.0-40.0) L 01/01/19 06:48 [place] % (Auto) 2.0 % (0.0-10.0) 01/01/19 06:48 Eos % (Auto) 0.1 % (0.0-4.0) 01/01/19 06:48 Baso % (Auto) 0.2 % (0.0-2.0) 01/01/19 06:48 Neut # (Auto) 7.6 K/uL (1.8-7.0) H 01/01/19 06:48 Lymph # (Auto) 0.7 K/uL (1.0-4.3) L 01/01/19 06:48 [place] # (Auto) 0.2 K/uL (0.0-0.8) 01/01/19 06:48 Eos # (Auto) 0.0 K/uL (0.0-0.7) 01/01/19 06:48 Baso # (Auto) 0.0 K/uL (0.0-0.2) 01/01/19 06:48 Neutrophils % (Manual) 89 % (50-75) H 01/01/19 06:48 Lymphocytes % (Manual) 8 % (20-40) L 01/01/19 06:48 Monocytes % (Manual) 3 % (0-10) 01/01/19 06:48 Platelet Estimate Normal (NORMAL) 01/01/19 06:48 RBC Morphology Normal 01/01/19 06:48 Sodium 137 mmol/L (132-148) 01/01/19 06:48 Potassium 4.3 mmol/L (3.6-5.2) 01/01/19 06:48 Chloride 101 mmol/L (98-107) 01/01/19 06:48 Carbon Dioxide 32 mmol/L (22-30) H 01/01/19 06:48 Anion Gap 9 (10-20) L 01/01/19 06:48 BUN 18 mg/dL (9-20) 01/01/19 06:48 Creatinine 0.6 mg/dL (0.8-1.5) L 01/01/19 06:48 Est GFR ( Amer) > 60 01/01/19 06:48 Est GFR (Non-Af Amer) > 60 01/01/19 06:48 Random Glucose 148 mg/dL (75-110) H D 01/01/19 06:48 Calcium 9.3 mg/dl (8.6-10.4) 01/01/19 06:48 Magnesium 2.3 mg/dL (1.6-2.3) 01/01/19 06:48 Total Bilirubin 0.4 mg/dL (0.2-1.3) 01/01/19 06:48 AST 17 U/L (17-59) D 01/01/19 06:48 ALT 19 U/L (21-72) L D 01/01/19 06:48 Alkaline Phosphatase 123 U/L (38-126) 01/01/19 06:48 Total Creatine Kinase 31 U/L (55-170) L 12/31/18 13:17 CK-MB (Mass) 1.58 ng/mL (0.0-3.38) 12/31/18 13:17 Troponin I < 0.0120 ng/mL (0.00-0.120) 12/31/18 13:17 Total Protein 5.9 g/dL (6.3-8.3) L 01/01/19 06:48 Albumin 3.8 g/dL (3.5-5.0) 01/01/19 06:48 Globulin 2.1 gm/dL (2.2-3.9) L 01/01/19 06:48 Albumin/Globulin Ratio 1.9 (1.0-2.1) 01/01/19 06:48 Urine Color Yellow (YELLOW) 12/31/18 15:22 Urine Clarity Clear (Clear) 12/31/18 15:22 Urine pH 7.0 (5.0-8.0) 12/31/18 15:22 Ur Specific [place] 1.012 (1.003-1.030) 12/31/18 15:22 Urine Protein Negative mg/dL (NEGATIVE) 12/31/18 15:22 Urine Glucose (UA) Normal mg/dL (Normal) 12/31/18 15:22 Urine Ketones Negative mg/dL (NEGATIVE) 12/31/18 15:22 Urine Blood Negative (NEGATIVE) 12/31/18 15:22 Urine Nitrate Negative (NEGATIVE) 12/31/18 15:22 Urine Bilirubin Negative (NEGATIVE) 12/31/18 15:22 Urine Urobilinogen Normal mg/dL (0.2-1.0) 12/31/18 15:22 Ur Leukocyte Esterase Neg [place]/uL (Negative) 12/31/18 15:22 Urine WBC (Auto) < 1 /hpf (0-5) 12/31/18 15:22 Urine RBC (Auto) < 1 /hpf (0-3) 12/31/18 15:22 Ur Squamous Epith Cells 1 /hpf (0-5) 12/31/18 15:22 Urine Opiates Screen Negative (NEGATIVE) 12/31/18 15:22 Urine Methadone Screen Negative (NEGATIVE) 12/31/18 15:22 Ur Barbiturates Screen Negative (NEGATIVE) 12/31/18 15:22 Ur Phencyclidine Scrn Negative (NEGATIVE) 12/31/18 15:22 Ur Amphetamines Screen Negative (NEGATIVE) 12/31/18 15:22 U Benzodiazepines Scrn Positive (NEGATIVE) 12/31/18 15:22 U Oth Cocaine Metabols Negative (NEGATIVE) 12/31/18 15:22 U Cannabinoids Screen Negative (NEGATIVE) 12/31/18 15:22 Alcohol, Quantitative < 10 mg/dl (0-10) 12/31/18 13:17 Influenza Typ A,B (EIA) Negative for flu a/b (NEGATIVE) 12/31/18 13:17 - Hospital Course Hospital Course: 58 years old white male present to [facility] emergency room complaining of generalized shaking shortness of breath cough mild expectoration. Patient has a history of COPD smokes half a pack per day Patient also drinks alcohol but not very clear how much he drinks every day Patient with a history of back injury and spinal stenosis and takes Percocet Patient was treated in the emergency room with not much improvement in the wheezing and patient is admitted for wheezing and possible alcohol detox PT IMPROVED ON IV STEROIDS AND NEB PT WANTED TO BE D/C THE LUNG FUNCTION WERE 805 BETTER PT WAS RX ON PO STEROIDS AND INHALER PT HAD SEVERE OPIOD DRUG DEPENDENCY DEMANDED PO POECOCET ONLY PO TRAMADOL WAS GIVEN F/U WITH HIS PMD AND PAIN MANAGEMENT Discharge Exam - Head Exam Head Exam: ATRAUMATIC, NORMAL INSPECTION, NORMOCEPHALIC Discharge Plan - Discharge Medications Prescriptions: Folic Acid 1 mg PO DAILY 30 Days tab Multivitamins [Hexavitamin] 1 tab PO DAILY 30 Days tab Methylprednisolone [Medrol Dose Pack (21 tabs)] 4 mg PO DAILY #21 mg Mirtazapine [Remeron] 30 mg PO HS 30 Days tab traMADol [Ultram] 50 mg PO Q6H 3 Days tab Albuterol HFA [Ventolin HFA 90 mcg/actuation (8 g)] 1 puff INH RQ6 PRN #1 inhaler PRN Reason: Shortness Of Breath - Follow Up Plan Condition: STABLE Disposition: HOME/ ROUTINE Instructions: COPD Including Emphysema (DC), Folic Acid, Methylprednisolone, Vitamins (Multiple/Oral) Additional Instructions: FOLLOW UP WITH DR LIMON IN HIS OFFICE CONTINUE HOME MEDICATION NEW PRESCRIPTION GIVEN MEDROL DOSE PACK FOLIC ACID ONE TAB DAILY MULTI VIT ONE TAB DAILY VENTOLIN IHN REMERON 30 MG PO DAILY TRAMADOL FOR 3 DAYS ACTIVITY TOLERATED CALL DR LIMON OR GO TO THE EMERGENCY ROOM IF SYMPTOM RETURN OR WORSENING Referrals: Cornelia Stroud MD [Staff Provider] - Malcolm Limon MD [Staff Provider] -
== END 2019-01-02 13:43 | disposition home or self-care (01) ==
LOC: C.ER 11:29 → C.9E 15:58 → C.6T 16:10 → C.9E 17:15 → C.6T 17:56
PROVIDERS: ADMIT Internal Medicine Cardiovascular Disease; ATTEND Internal Medicine Cardiovascular Disease
DX: J44.1 Chronic obstructive pulmonary disease with (acute) exacerbation (principal); F10.239 Alcohol dependence with withdrawal, unspecified; F11.23 Opioid dependence with withdrawal; F17.210 Nicotine dependence, cigarettes, uncomplicated; F32.9 Major depressive disorder, single episode, unspecified; Z96.643 Presence of artificial hip joint, bilateral; G89.29 Other chronic pain
CPT/HCPCS: 36415; 71045; 80053; 81001; 83735; 84484; 85025; 87804; 93005; 94640; 96374; 99284; G0378; G0480; J2920